=== PATIENT | male | born 1950 | race Caucasian/White ===

== ENCOUNTER 2023-01-21 14:17 | Emergency (ER) | payer MEDICARE, OTHER, SELFPAY ==
--- NOTE | ~2023-01-21 | CT_ITS ---
EXAMINATION: CT thoracic spine wo con DATE: 01/21/2023 17:30 INDICATION: Mid back pain. TECHNIQUE: Computed tomography (CT) of the thoracic spine was performed without intravenous contrast. Automated exposure control and iterative reconstruction technique were employed. The dose-length pro duct was 2120.58 mGy-cm. COMPARISON: None FINDINGS: There is 14 degrees dextroscoliosis of upper thoracic spine and 14 degrees levoscoliosis of lower thoracic spine. There is mild chronic anterior wedging of T7, T8, T9, T11, T12, and L1 vertebr al bodies. There is mildly decreased disc height from T3-T4 through T12-L1. There are bridging endpla te osteophytes from T4 to T11, consistent with diffuse idiopathic skeletal hyperostosis (DISH). There is multilevel facet joint osteoarthritis, severe on the right at T6-T7 and T10-T11. There is multile wanda mild neural foraminal stenosis. On the right, there is severe neural foraminal stenosis at T10-T1 1. On the left, there is moderate neural foraminal stenosis at T11-T12. There is mild central canal s tenosis at T5-T6, T6-T7, and T8-T9. IMPRESSION: 1. Moderate thoracic spondylosis. 2. DISH. 3. Scoliosis. Reviewed, dictated and finalized at location E.
[2023-01-21 14:24] VITALS: BP 134/59; PULSE 55; RESP 18; TEMP 36.4; O2SAT 100
--- NOTE | 2023-01-21 16:46 | PC.NURSE ---
Pt is reporting thumb numbness but states this is not a new symptom and that it happens from time to time.
--- NOTE | 2023-01-21 17:18 | ECG_ITS ---
Measurements Intervals Morrison Rate: 44 P: -2 RI: 173 QRS: 0 QRSD: 97 T: 18 QT: 451 QTc: 390 Interpretive Statements SINUS BRADYCARDIA MODERATE VOLTAGE CRITERIA FOR LVH, CONSIDER NORMAL VARIANT [MEETS CRITERIA IN ONE OF: R(aVL), S(V1), R(V5), R(V5/V6)+S(V1)] NO PREVIOUS ECG AVAILABLE FOR COMPARISON Electronically Signed On 01-22-2023 14:55:55 CDT by Ching Ba M.D.
--- NOTE | 2023-01-21 17:22 | ED.GENADULT ---
HPI - General Adult General Chief complaint: Back Pain/Injury Stated complaint: back pain Time Seen by Provider: 01/21/23 17:02 Source: patient Mode of arrival: ambulatory Limitations: no limitations History of Present Illness HPI narrative: This is a 72-year-old male with PMH of CAD, HLD who presents to the ED with chief complaint of mid to upper back pain ongoing for the past week and worse since last night. Reports that his back has been sore due to recent house and yard work that he has been completing. Reports yesterday he laid down to stretch and when he tried to get up he worsened the pain. There was no direct trauma to the back. Reports when he is laying down pain is a 1 or 2. However certain movements makes the pain an 8. He specifically notes that certain movements like flexion or moving the right arm bring on the pain. Denies any exertional pain. Denies pleuritic pain. Denies fevers, chills, numbness, weakness, bowel or bladder dysfunction, chest pain, shortness of breath, vomiting, LOC. Related Data Allergies Allergy/AdvReac Type Severity Reaction Status Date / Time No Known Allergies Allergy Verified 01/21/23 16:44 Review of Systems Review of Systems: All systems as dictated in HPI Exam Narrative: GENERAL: Well-appearing, well-nourished, and in no acute distress. HEAD: Normocephalic, atraumatic. EYES: PERRLA and EOMI. ENT: Nares clear, no rhinorrhea or epistaxis. Mucous membranes moist. Oropharynx without tonsillar hypertrophy exudate or other lesions. NECK: Supple. No adenopathy or masses. CHEST: No respiratory distress. Clear to auscultation. No wheezes rales or rhonchi HEART: Regular rate and rhythm. No murmur heard. Normal peripheral pulses. ABDOMEN: Soft, nontender, nondistended, normal active bowel sounds. MSK: Point tender to the right paraspinal muscles of the mid thoracic spine. Pain is recreated with spinal flexion. No midline CT LS spine tenderness. No deformity or step-off. SKIN: Warm, dry, no rash. No skin changes to the back. NEURO: Alert and oriented x3. No focal deficits. 5 out of 5 strength and sensation in the upper and lower extremities. PSYCH: Normal mood and affect. Course Course Emergency Course: Reevaluation 1839: Patient still feeling pain-free. He is ready to go home. Vital Signs Vital signs: Vital Signs Temperature 97.6 F 01/21/23 14:24 Pulse Rate 55 L 01/21/23 14:24 Respiratory Rate 18 01/21/23 14:24 Blood Pressure 134/59 L 01/21/23 14:24 Pulse Oximetry 100 01/21/23 14:24 Oxygen Delivery Room Air 01/21/23 14:24 Temperature 97.6 F 01/21/23 14:24 Pulse Rate 55 L 01/21/23 14:24 Respiratory Rate 18 01/21/23 14:24 Blood Pressure 134/59 L 01/21/23 14:24 Pulse Oximetry 100 01/21/23 14:24 Oxygen Delivery Room Air 01/21/23 14:24 Medical Decision Making MDM Narrative Medical decision making narrative: This is a 72-year-old male who presents to the ED with chief complaint of upper back pain that started a week ago and worsened last night. Reports that he was getting up off the ground and felt a shooting pain started. Vitals are normal. Exam remarkable for the above. I am able to palpate point tender areas in the back. There is no exertional component. Pain is recreated with certain movements. Very low concern for cardiopulmonary causes of this pain. Lab work is unremarkable. CT thoracic spine shows moderate thoracic spondylosis. DISH. Scoliosis. Symptoms are consistent with acute flareup of degenerative changes. Low concern for any kind of infectious process. He is comfortable going home and following up with PCP. Pt will be discharged in stable condition. Return precautions given and supportive measures discussed. Pt is understanding and agreeable with plan for discharge and follow-up with PCP. Vital Signs Vital Signs: Vital Signs Temperature 97.6 F 01/21/23 14:24 Pulse Rate 55 L 01/21/23 14:24 Res
[2023-01-21 17:45] LABS: Basophils Absolute Auto 0.1 K/mm3 (0.0-0.1); Basophils Percent Auto 0.9 % (0.2-1.2); Eosinophils Absolute Auto 0.4 K/mm3 (0-0.3); Hematocrit 37.5 % (42.0-52.0); Hemoglobin 11.8 g/dL (14.0-18.0); Immature Granulocyte Absolute 0.01 K/mm3 (0.00-0.031); Immature Granulocyte Percent A 0.1 % (0-0.5); Lymphocytes Absolute Auto 2.07 K/mm3 (0.9-3.2); Lymphocytes Percent Auto 30.4 % (18.3-44.2); Mean Corpuscular HGB Conc 31.5 g/dl (32-36); Mean Corpuscular Hemoglobin 29.4 pg (26-34); Mean Corpuscular Volume 93.3 fl (80-100); Monocytes Absolute Auto 1.1 K/mm3 (0.1-0.6); Monocytes Percent Auto 16.6 % (2.6-8.5); Neutrophils Absolute Auto 3.1 K/mm3 (1.3-6.7); Platelet Count Result 263 k/mm3 (150-375); Red Blood Count 4.02 M/mm3 (4.6-6.20); White Blood Count 6.8 K/mm3 (4.5-10.0)
[2023-01-21 17:55] LABS: Anion Gap 7 mmol/L (8-16); Blood Urea Nitrogen 21 mg/dL (9-20); Calcium 9.2 mg/dL (8.4-10.2); Carbon Dioxide 25 mmol/L (22-30); Chloride 104 mmol/L (98-107); Estimated CRCL calculation 47 ml/min; Estimated Glomerular Filt Rate 50; Glucose 106 mg/dL (65-110); Sodium 136 mmol/L (137-145)
== END 2023-01-21 18:55 | disposition home or self-care (01) ==
PROVIDERS: Emergency Provider Physician Assistant
DX: M54.6 Pain in thoracic spine (principal); G89.29 Other chronic pain; I25.10 Atherosclerotic heart disease of native coronary artery without angina pectoris; E78.5 Hyperlipidemia, unspecified; M47.814 Spondylosis without myelopathy or radiculopathy, thoracic region
CPT/HCPCS: 36415; 72128; 80048; 85025; 93005; 99284